=== PATIENT | female | born 1980 | race Caucasian/White ===

== ENCOUNTER → 2020-09-21 | Emergency (ER) | payer SELFPAY ==
[~2020-09-21] VITALS: Ht 152.4 cm; Wt 63.6 kg
[~2020-09-21] MED LIST: BACTRIM DS 8001 TAB PO; NORCO 325 MG-51 TAB PO; OMNICEF 300MG300 MG PO
[2020-09-21 16:12] VITALS: TEMP 97.6
[2020-09-21 16:32] LABS: COLLECTION METHOD CLEAN CATCH
[2020-09-21 16:37] LABS: BASO # 0.1 (0.0-0.2); BASO % 0.5 % (0.0-2.0); EOS # 0.1 (0.0-0.7); EOS % 0.5 % (0-4.0); GRAN # 5.3 (1.4-6.5); GRAN % 56.8 % (42.2-75.2); HEMATOCRIT 38.3 % (37.0-47.0); HEMOGLOBIN 13.1 g/dl (12.5-16.0); LYMPH # 2.9 (1.2-3.4); LYMPH % 31.4 % (20.0-51.0); MEAN CELL VOLUME 104 fl (80.0-100.0); MEAN CORPUSCULAR HEMOGLOBIN 35 pg (27.0-31.0); MEAN CORPUSCULAR HGB CONC 34 g/dl (33.0-37.0); MEAN PLATELET VOLUME 10.8 fl (7.4-10.4); MONO # 0.9 (0.1-0.6); MONO % 10.1 % (1.7-9.3); PLATELET COUNT 175 K/mm3 (130-400); REDCELL DISTRIBUTION WIDTH-CV 17.4 % (11.5-14.5)
[2020-09-21 16:45] LABS: MUCOUS Present /lpf; PH 6 (5-8); SQUAMOUS EPITHELIAL 0-2 /hpf; URINE APPEARANCE Hazy; URINE BACTERIA Rare /hpf; URINE BILIRUBIN Negative (NEGATIVE); URINE BLOOD 1+ (NEGATIVE); URINE COLOR Amber; URINE GLUCOSE Negative (NEGATIVE); URINE KETONE 2+ (NEGATIVE); URINE LEUKOCYTE ESTERASE Trace (NEGATIVE); URINE NITRATE Positive (NEGATIVE); URINE PROTEIN(semi-quant) 3+ (NEGATIVE); URINE RBC 0-2 /hpf; URINE UROBILINOGEN >=4.0 mg/dL (NEGATIVE)
[2020-09-21 16:46] LABS: ALANINE AMINOTRANSFERASE 149 U/L (4-34); ALKALINE PHOSPHATASE 295 U/L (50-136); ANION GAP 24 mmol/L (7-16); AST,SGOT 615 U/L (15-37); BILIRUBIN,TOTAL 2.3 mg/dL (0.0-1.0); BLOOD UREA NITROGEN 11 mg/dL (7-17); CALCIUM 8.7 mg/dL (8.4-10.2); CARBON DIOXIDE 19 mmol/L (22-30); CHLORIDE 92 mmol/L (98-107); CREATININE, serum 0.43 (0.52-1.25); GLUCOSE 94 mg/dL (74-106); POTASSIUM 3.7 mmol/L (3.4-5.0); SODIUM 135 mmol/L (137-145); TOTAL PROTEIN 9.6 gm/dL (6.4-8.2)
[2020-09-21 16:49] LABS: TRICYCLIC ANTIDEPRESS URINE NEGATIVE
[2020-09-21 16:56] LABS: ALCOHOL(ethanol),MEDICAL 341 mg/dL
[2020-09-21 16:58] LABS: TROPONIN-I < 0.012 ng/mL (0.000-0.035)
[2020-09-21 17:43] VITALS: BP 119/89; PULSE 82
== END ==
LOC: COL.ER 15:51
PROVIDERS: Physician Assistant
DX: F10.129 Alcohol abuse with intoxication, unspecified (principal); F15.19 Other stimulant abuse with unspecified stimulant-induced disorder; N39.0 Urinary tract infection, site not specified; R07.9 Chest pain, unspecified; F17.210 Nicotine dependence, cigarettes, uncomplicated; Z32.02 Encounter for pregnancy test, result negative; Z88.5 Allergy status to narcotic agent; Z79.899 Other long term (current) drug therapy; Y90.8 Blood alcohol level of 240 mg/100 ml or more
CPT/HCPCS: J0696; J2405; J7030